=== PATIENT | female | born 1995 | race American Indian/Alaskan Native ===

== ENCOUNTER 2016-06-23 10:59 | Emergency (ER) | payer SELFPAY ==
[2016-06-23 11:31] VITALS: BP 139/97
--- NOTE | 2016-06-23 12:58 | Emergency Department Report ---
Chief Complaint: Urogenital-Female Stated Complaint: POSS STD Time Seen by Provider: 06/23/16 12:07 - HPI History of Present Illness: 20-year-old female presents today with slight discharge to 3 days. Positive minimal pruritus and follow odor. Positive for history of chlamydia. Denies burning on urination, blood in urine, increased urinary frequency or urgency. Denies fever, chills, nausea, vomiting, chest pain, shortness of breath, abdominal pain. - ROS Review of Systems: Per HPI - Exam Vital Signs: Vital Signs 06/23/16 11:25 Temperature 98.1 F Pulse Rate 79 Respiratory 16 Rate Blood Pressure 139/97 O2 Sat by Pulse 100 Oximetry Physical Exam: GENERAL: The patient is well-developed and well-nourished. Patient is in NAD. HEAD: Normocephalic. Atraumatic. CHEST/LUNGS: Clear to auscultation throughout. HEART/CARDIOVASCULAR: Regular rate and rhythm. ABDOMEN: Abdomen is soft, nontender. Bowel sounds normoactive. No guarding or rebound tenderness. Negative for CVA tenderness bilaterally. EXTREMITIES: Peripheral pulses intact. Capillary refill less than 2 seconds. NEURO: Alert and oriented x 3. Normal gait. MSE screening note: Focused history and physical exam performed. Due to findings the following was ordered: ED Disposition for MSE Disposition: MEDICAL SCREENING EXAM-LEFT Condition: Stable Referrals: PRIMARY CARE, [Primary Care Provider] - 3-5 Days
== END 2016-06-23 13:20 | disposition left against medical advice (07) ==
LOC: ED 10:59
DX: L29.9 Pruritus, unspecified (principal); Z53.21 Procedure and treatment not carried out due to patient leaving prior to being seen by health care provider